=== PATIENT | female | born 1970 | race Hispanic/Latino ===

== ENCOUNTER 2024-12-04 06:00 | Observation (INO) | payer SELFPAY ==
[2024-12-04] VITALS (7 sets, daily range): BP systolic 102–146; BP diastolic 69–102; PULSE 70–91; RESP 16–20; TEMP 97.7–98.4; O2SAT 95–97
[~2024-12-04] VITALS: Ht 165.1 cm; Wt 61.2 kg
[2024-12-04] MEDS ORDERED: ZOFRAN ONE (06:23)
[2024-12-04] MEDS ORDERED: NS 1000ML 1,000 ML ONE (06:23)
[2024-12-04] MEDS ORDERED: MORPHINE SULFATE ONE (06:23)
[2024-12-04 06:27] LABS: BASOPHIL # 0.1 10^3/uL (0.0-0.1); BASOPHIL % 0.4 % (0.1-1.2); EOSINOPHIL # 0.1 10^3/uL (0.0-0.2); EOSINOPHIL % 0.5 % (0.0-5.0); HEMATOCRIT(ML) 46.5 % (36.0-46.0); HEMOGLOBIN 15.9 g/dL (12.0-15.0); LYMPHOCYTES # 2.11 10^3/uL1 (1.0-4.8); LYMPHOCYTES % 16.4 % (24.0-44.0); MEAN CORP HGB 28.4 pg (26-34); MEAN CORP HGB CONCENTRATION 34.2 g/dL (33-36.5); MONOCYTES # 0.7 10^3/uL (0.3-0.8); NEUTROPHILS % 77.5 % (41.0-85.0); PLATELET COUNT 334 10^3/uL (150-400); RED CELL DISTRIBUTION WIDTH 12.7 % (11.5-14.5); WHITE BLOOD CELL 12.9 10^3/uL (4.5-11.0)
[2024-12-04] MEDS: NS 1000ML 1,000 ML IV STA (06:28)
[2024-12-04] MEDS: ZOFRAN IV STA (06:28)
[2024-12-04] MEDS: MORPHINE SULFATE IV STA (06:29)
[2024-12-04 06:31] LABS: +ADD MANUAL DIFF(NO CHRG) NO
[2024-12-04 06:37] LABS: ALBUMIN(ML) 4.3 g/dL (3.4-5.0); ALBUMIN/GLOBULIN RATIO 0.955; ANION GAP 13.7; CALCIUM 9.7 mg/dL (8.4-10.5); CARBON DIOXIDE 27.8 mmol/L (20.0-32); CREATININE SERUM 1.05 mg/dL (0.59-1.40); EST GFR, NON-AA 54.4 (>/=60); POTASSIUM 3.5 mmol/L (3.6-5.2)
[2024-12-04 06:59] LABS: BILIRUBIN,URINE NEGATIVE (NEGATIVE); LEUKOCYTE ESTERASE ,URINE TRACE (NEGATIVE); NITRATE,URINE POSITIVE (NEGATIVE); PH,URINE 5.5 (4.5-8.0); UROBILINOGEN,URINE 0.2 E.U./dL (0.2)
[2024-12-04 07:00] LABS: APPEARANCE,URINE HAZY; UA COLOR YELLOW
[2024-12-04] MEDS ORDERED: ROCEPHIN ONE (07:47)
[2024-12-04] MEDS ORDERED: NS 100ML 100 ML IV ONE (07:47)
[2024-12-04] MEDS: ROCEPHIN 1,000 MG in NS 100ML 100 ML IV STA (07:52)
[2024-12-04] MEDS: PROTONIX IV IV STA (07:57)
[2024-12-04] MEDS ORDERED: D5W-1/2 NS/KCL 20MEQ 1,000 ML ONE (08:20)
[2024-12-04] MEDS: D5W-1/2 NS/KCL 20MEQ 1,000 ML IV STA (08:24)
[2024-12-04] MEDS ORDERED: NICOTINE 21 MGPATCH TD PRN (11:00)
[2024-12-04] MEDS ORDERED: NITROSTAT SL PRN (11:00)
[2024-12-04] MEDS ORDERED: DEXTROSE 50%-WATER SYRINGE IV PRN (11:00)
[2024-12-04] MEDS ORDERED: MORPHINE SULFATE IV PRN ×2 (11:00)
[2024-12-04] MEDS ORDERED: DUONEB 0.5-3(2.5) MG/3 ML IH PRN (11:00)
[2024-12-04] MEDS ORDERED: TYLENOL PO PRN (11:00)
[2024-12-04] MEDS ORDERED: APRESOLINE IV PRN (11:00)
[2024-12-04] MEDS ORDERED: ZOFRAN IV PRN (11:00)
[2024-12-04] MEDS: LACTATED RINGERS 1,000 ML IV SCH (11:34)
[2024-12-04] MEDS: LOVENOX SQ SCH (11:34)
[2024-12-04] MEDS: MELATONIN PO PRN (23:19)
[2024-12-04] MEDS: OFIRMEV 1000 MG/100 ML 100 ML IV PRN (23:19)
[2024-12-05 00:05] VITALS: BP 122/77; PULSE 78; RESP 18; TEMP 97.9; O2SAT 99
[2024-12-05 04:10] VITALS: BP 97/61; PULSE 72; RESP 18; TEMP 98.1; O2SAT 97
[2024-12-05 07:10] LABS: BASOPHIL % 0.8 % (0.1-1.2); EOSINOPHIL # 0.2 10^3/uL (0.0-0.2); HEMATOCRIT(ML) 38.2 % (36.0-46.0); MEAN CORP HGB 28.3 pg (26-34); MEAN CORP VOLUME 85.8 fL (78-100); MONOCYTES # 0.3 10^3/uL (0.3-0.8); MONOCYTES % 7.5 % (5.0-12.0); NEUTROPHIL # 1.7 10^3/uL (1.8-7.7); NEUTROPHILS % 42.7 % (41.0-85.0); PLATELET COUNT 251 10^3/uL (150-400); RED BLOOD CELL 4.45 10^6/uL (4.00-5.20); RED CELL DISTRIBUTION WIDTH 12.9 % (11.5-14.5)
[2024-12-05 07:16] LABS: HEMOGLOBIN 12.6 g/dL (12.0-15.0)
[2024-12-05 07:17] LABS: +ADD MANUAL DIFF(NO CHRG) NO
[2024-12-05 07:19] LABS: ALBUMIN/GLOBULIN RATIO 0.833; ANION GAP 8.6; BUN/CREATININE RATIO 15.49 (10.0-20.0); CALCIUM 8.6 mg/dL (8.4-10.5); CREATININE SERUM 0.71 mg/dL (0.59-1.40); EST GFR, NON-AA 85.5 (>/=60); POTASSIUM 3.6 mmol/L (3.6-5.2)
[2024-12-05 07:30] VITALS: BP 116/78; PULSE 72; RESP 16; TEMP 97.9; O2SAT 95
[2024-12-05] MEDS: PROTONIX IV IV SCH (09:00)
[2024-12-05 11:30] VITALS: BP 92/62; PULSE 72; RESP 16; TEMP 98.2; O2SAT 95
[2024-12-05 13:50] VITALS: BP 92/62; PULSE 72; RESP 16; TEMP 98.2; O2SAT 95
== END 2024-12-05 13:50 | disposition home or self-care (01) ==
LOC: ER 06:00 → OBS 08:10
PROVIDERS: ADMIT Student in an Organized Health Care Education/Training Program; ATTEND Student in an Organized Health Care Education/Training Program
DX: R10.13 Epigastric pain (principal); K56.609 Unspecified intestinal obstruction, unspecified as to partial versus complete obstruction; R11.2 Nausea with vomiting, unspecified; R42 Dizziness and giddiness; Z90.710 Acquired absence of both cervix and uterus; Z79.899 Other long term (current) drug therapy; Z98.890 Other specified postprocedural states
CPT/HCPCS: 96372 ×2; 96365; 96361; 96375; 99285; 87086; 74177; 80053 ×2; 85025 ×2; 86677; 36415 ×2; 81001; 83690; 87077; 87186; 93005; 74018; 84100; 83735; G0378 ×30; J2270; J7030; J7120 ×2; J0131; J1650 ×2; J2405; J0696 ×2; J7070; Q9965; C9113